=== PATIENT | female | born 1995 | race Caucasian/White ===

== ENCOUNTER 2020-08-25 00:50 | Emergency (ER) | payer OTHER ==
[~2020-08-25] VITALS: Ht 162.6 cm; Wt 104.3 kg
[2020-08-25] MEDS ORDERED: PROZAC20 MG PO (01:00)
[2020-08-25] MEDS ORDERED: XANAX1 MG PO (01:00)
[2020-08-25 01:50] VITALS: BP 126/86
== END 2020-08-25 01:50 | disposition home or self-care (01) ==
LOC: ER 00:50
DX: S91.312A Laceration without foreign body, left foot, initial encounter (principal); F12.90 Cannabis use, unspecified, uncomplicated; M41.9 Scoliosis, unspecified; Z88.0 Allergy status to penicillin; Z79.899 Other long term (current) drug therapy; W25.XXXA Contact with sharp glass, initial encounter; Y93.89 Activity, other specified; Y92.89 Other specified places as the place of occurrence of the external cause; Y99.9 Unspecified external cause status